=== PATIENT | male | born 1950 | race Caucasian/White ===

== ENCOUNTER 2019-08-21 16:56 | Emergency (ER) | payer MEDICARE, OTHER ==
--- OUTSIDE RECORDS SUMMARY | 2019-08-21 17:29 | XMS REPORT | Summary of Care ---
:1950 Author Organization [facility] Address [address] [facility] [place] [address] Care Team Providers Name Role Phone Ashley Caro DO Primary Care Provider Reason for Visit Reason Comments Follow Up right handed male presents with balance issues and tremor Encounter Details Date Type Department Care Team Description 06/27/2019 Office Visit [facility] Lionel Gruber MD Parkinson disease (HCC) (Primary Dx); [address] [facility] Late onset Alzheimer's disease with behavioral disturbance (HCC); [place] [id number] [place] [id number] Visual hallucination [phone] Allergies No Known Allergiesdocumented as of this encounter (statuses as of 06/27/2019) Medications Medication Sig Dispensed Refills Start Date End Date Status Aspirin (ECOTRIN LOW Take by mouth 0 Active STRENGTH) 81 MG Oral DAILY. Tab EC Multiple Take by mouth. 0 Active Vitamins-Minerals (CENTRUM SILVER ULTRA MENS PO) nitroglycerin Place 1 Tab under 25 Tab 6 07/27/2017 Active (NITROSTAT) 0.4 MG tongue EVERY FIVE Sublingual SL MINUTES NEEDED TabIndications: Chest (PRN for chest pain, unspecified type pain). q 5 min x 3, if no relief go to the ER. isosorbide MONOnitrate Take 1 Tab by 90 Tab 3 09/06/2018 Active (IMDUR) 30 MG Oral mouth DAILY. TABLET SR 24 HR Omeprazole 40 MG Oral Take 1 Cap by 90 Cap 3 12/19/2018 Active CAPSULE DELAYED RELEASE mouth DAILY. atorvastatin (LIPITOR) Take 1 Tab by 90 Tab 3 12/19/2018 Active 20 MG Oral Tab mouth DAILY. gabapentin (NEURONTIN) Take 1 Cap by 90 Cap 0 02/06/2019 Active 300 MG Oral Cap mouth THREE TIMES DAILY. carbidopa-levodopa Take 1 Tab by 180 Tab 3 05/15/2019 Active (SINEMET CR) 50-200 MG mouth TWICE Oral Tab CR DAILY. carbidopa-levodopa Take 1 Tab by 360 Tab 3 05/15/2019 Active (SINEMET) 25-100 MG mouth FOUR TIMES Oral Tab DAILY. quetiapine (SEROQUEL) Take 2 Tabs by 180 Tab 3 06/22/2019 Active 25 MG Oral Tab mouth EVERY BEDTIME. Pimavanserin Tartrate Take 34 mg by 30 Cap 3 06/27/2019 Active (NUPLAZID) 34 MG Oral mouth EVERY Cap BEDTIME. documented as of this encounter (statuses as of 06/27/2019) Active Problems Problem Noted Date Bilateral hip pain 07/11/2018 Overview: Xrays showing mild degenerative changes. Area of pain inconsistent with musculoskeletal findings. Having worsening numbness into leg as well. Will obtain MRI of lumbar spine. Parkinson disease 05/02/2018 Overview: Suspected. Has appointment with Neurology. Memory loss 05/02/2018 Overview: Currently on Aricept. Concern for underlying Parkinson's disease. Coronary artery disease involving [place] coronary artery of [place] heart 04/17 with angina pectoris Overview: S/P PCI/Stent to the LEFT ANTERIOR DESCENDING 05/09/09 Catheterization 07/25/09 Patent LEFT ANTERIOR DESCENDING stent with mild in- stent narrowing, moderate lesion 50 to 60% at the ostium. Mixed hyperlipidemia 04/17/2013 DANIEL on CPAP documented as of this encounter (statuses as of 06/27/2019) Immunizations Name Administration Dates Next Due Influenza (IM) Preservative Free 05/02/2018 Pneumococcal Conjugate(13 Valent) 05/02/2018 documented as of this encounter Social History Tobacco Use Types Packs/Day Years Used Date Former Smoker Cigarettes 1 13 07/12/1964 - 04/21/1993 Smokeless Tobacco: Former User Chew Alcohol Use Drinks/Week oz/Week Comments Yes 1 beer once a week Sex Assigned at Date Recorded Not on file Job Start Date Occupation Industry Not on file Not on file Not on file Travel History Travel Start Travel End No recent travel history available. documented as of this encounter Last Filed Vital Signs Vital Sign Reading Time Taken Comments Blood Pressure 149/95 06/27/2019 9:06 AM EST Pulse 81 06/27/2019 9:06 AM EST Temperature - - Respiratory Rate - - Oxygen Saturation - - Inhaled Oxygen Concentration - - Weight 76.2 kg (168 lb) 06/27/2019 9:06 AM EST Height 162.6 cm (5' 4") 06/27/2019 9:06 AM EST Body Mass Index 28.84 06/27/2019 9:06 AM EST documented in this encounter Patient Instructions Patient InstructionsLionel Gruber MD - 06/27/2019 9:00 AM ESTContinue with seroquel 50 g at bedtime. continue wit sinemet one pill four times a day will start with Nuplazid 34 mg at bedtime follow up in 3 months documented in this encounter Progress Notes Lionel Gruber MD - 06/27/2019 9:00 AM EST PATIENT: Tyson Dumont : 1950 DATE OF SERVICE: 06/27/2019 REFERRING PRACTITIONER: Self-Referred PRIMARY CARE PROVIDER: Ashley Caro CHIEF COMPLAINT: Chief Complaint Patient presents with Follow Up right handed male presents with balance issues and tremor HISTORY OF PRESENT ILLNESS: Tyson Dumont is a 68-y.o. right hand dominant male who presents for a consultation. He complains of unilateral hand tremor, postural changes, change in handwriting , difficulty with walking and balance problems. Tremor occurs at rest, Voice changes include decreased volume noted. Patient with no family history of AD or PD, comes in with unilateral hand tremor balance issue, memory loss since a year ago. He was evaluated by Dr. Patrick gomez who made a diagnosis of parkinson andAlzheimer's disease. He was placed on sinemet 25/100 mg one pill 4 times a day and his tremor and gait improved. however, he has a daily visual and auditory hallucinations towards evening time. he sees family members and animals and they seem to bother him and also his . Onset was gradual 1 years ago and symptoms have been gradually worsening. Symptoms are currently of mild and moderate severity. Symptoms occur intermittently and last hours. He denies drooling during sleep (wet pillows) and difficulty with swallowing. Previous treatment include Sinemet.. Patient has been taking sinemet one pill four times a day. Most of time three and occasionally four with no side effects. he also takes seroquel 50 mg at bedtime for visual hallucinations. he sees full of women at the kitchen and he hears loud noises from them they are not scary or threathening to him. he does not drive a car. He has no falls or balance issues. His dementia is under good control. He is independent with ADL. Past Medical History: Diagnosis Date Arthritis Dyslipidemia Heart disease, unspecified High cholesterol Hypertension DANIEL on CPAP Sleep apnea Unspecified essential hypertension Past Surgical History: Procedure Laterality Date POST-HEART CATH VS & CHECK PULSES ANGIOPLASTY STENT CORONARY VIA GROIN 05/09/09 APPENDECTOMY As a child BALO ANGIOP ICRA PRQ Family History Problem Relation Age of Onset Arthritis Mother Cancer Father Cancer Brother Current Outpatient Medications Medication Sig Aspirin (ECOTRIN LOW STRENGTH) 81 MG Oral Tab EC Take by mouth DAILY. atorvastatin (LIPITOR) 20 MG Oral Tab Take 1 Tab by mouth DAILY. carbidopa-levodopa (SINEMET CR) 50-200 MG Oral Tab CR Take 1 Tab by mouth TWICE DAILY. carbidopa-levodopa (SINEMET) 25-100 MG Oral Tab Take 1 Tab by mouth FOUR TIMES DAILY. gabapentin (NEURONTIN) 300 MG Oral Cap Take 1 Cap by mouth THREE TIMES DAILY. isosorbide MONOnitrate (IMDUR) 30 MG Oral TABLET SR 24 HR Take 1 Tab by mouth DAILY. Multiple Vitamins-Minerals (CENTRUM SILVER ULTRA MENS PO) Take by mouth. nitroglycerin (NITROSTAT) 0.4 MG Sublingual SL Tab Place 1 Tab under tongue EVERY FIVE MINUTES NEEDED (PRN for chest pain). q 5 min x 3, if no relief go to the ER. Omeprazole 40 MG Oral CAPSULE DELAYED RELEASE Take 1 Cap by mouth DAILY. Pimavanserin Tartrate (NUPLAZID) 34 MG Oral Cap Take 34 mg by mouth EVERY BEDTIME. quetiapine (SEROQUEL) 25 MG Oral Tab Take 2 Tabs by mouth EVERY BEDTIME. No current facility-administered medications for this visit. No Known Allergies Social History Socioeconomic History Marital status: Spouse name: Not on file Number of children: Not on file Years of education: Not on file Highest education level: Not on file Occupational History Not on file Social Needs Financial resource strain: Not on file Food insecurity Worry: Not on file Inability: Not on file Transportation needs Medical: Not on file Non-medical: Not on file Tobacco Use Smoking status: Former Smoker Packs/day: 1.00 Years: 13.00 Pack years: 13.00 Types: Cigarettes Start date: 07/12/1964 Last attempt to quit: 04/21/1993 Years since quittin.2 Smokeless tobacco: Former User Types: Chew Substance and Sexual Activity Alcohol use: Yes Comment: 1 beer once a week Drug use: No Types: Prescription Sexual activity: Not on file Comment: not asked Lifestyle Physical activity Days per week: Not on file Minutes per session: Not on file Stress: Not on file Relationships Social connections Talks on phone: Not on file Gets together: Not on file Attends mormonism service: Not on file Active member of club or organization: Not on file Attends meetings of clubs or organizations: Not on file Relationship status: Not on file Intimate partner violence Fear of current or ex partner: Not on file Emotionally abused: Not on file Physically abused: Not on file Forced sexual activity: Not on file Other Topics Concern Back Care Not Asked Bike Helmet Not Asked Blood Transfusions Not Asked Caffeine Concern Not Asked Exercise Not Asked Hobby Hazards Not Asked International Travel Not Asked Service Not Asked Occupational Exposure Not Asked Seat Belt Not Asked Self-Exams Not Asked Sleep Concern Not Asked Special Diet Not Asked Stress Concern Not Asked Weight Concern Not Asked Social History Narrative Living with and a pet dog REVIEW OF SYSTEMS: Patient is not in any acute distress. Patient denies chest pain, palpitation, dysuria, diarrhea, ,constipation, or bleedings. Patient does not have any signs of major depression or psychosis. No visualhallucination has been noted. The rest of the review of systems are unremarkable. PHYSICAL EXAMINATION: BP (!) 149/95 | Pulse 81 | Ht 5' 4" (1.626 m) | Wt 168 lb (76.2 kg) | BMI 28.84 kg/m Body mass index is 28.84 kg/m. NEUROLOGICAL: Alert and oriented X 3, normal strength and tone. Normal symmetric reflexes. Normal Coordination andgait. Mental status: Alert, oriented, thought content appropriate. No tremor is noted. hypomimia and mild bradykinesia noted. Cranial nerves: II: visual acuity normal bilaterally, ll: visual field normal, ll: pupils equal, round, reactive to light and accomodation, lll,lV,Vl : extraocular muscles extra-ocular motions intact, V: Mastication normal, V: facial light touch sensation normal bilaterally, V,Vll: corneal reflex present bilaterally, Vll: facial muscle function - upper normal bilaterally, Vll: facial muscle function - lower normal bilaterally, Vlll: hearing normal , lX: soft palate elevation normalbilaterally, lX,X: gag reflex present, Xl : trapezius strength normal bilaterally, Xl: sternocleidomastoid strength normal bilaterally, Xl: neck flexion strength normal, Xll: tongue strength normal bilaterally Sensory: normal to pain, touch, vibration and position sensation in upper and lower, bilateral extremities Motor: grade 5 frontalis bilaterally, zygomaticus bilaterally, orbicularis magdaleno bilaterally, masseter bilaterally and temporalis bilaterally, sternocleidomastiodeus bilaterally, trapezius bilaterally and rectus capitis anterior bilaterally, rectus abdominus bilaterally, supraspinatus bilaterally, trapezius bilaterally, deltoid bilaterally, pectoralis major bilaterally, rhomboid bilaterally and infraspinatus bilaterally, biceps bilaterally, brachialis bilaterally, triceps bilaterally, brachioradialis bilaterally and pronator teres bilaterally, extensor digitorum communis bilaterally and flexor carpi radialis bilaterally, adductor pollicis longus bilaterally, extensor digitorum communis bilaterally, iliacus bilaterally, psoas bilaterally, gluteus gita bilaterally, adductor trevon bilaterally, gluteus medius bilaterally and obturator internus bilaterally and gastrocnemius bilaterally, quadriceps femoris bilaterally, tibialis posterior bilaterally, peroneus longus bilaterally , peroneus brevis bilaterally and tibialis anterior bilaterally Reflexes: normal 2+ and symmetric biceps reflex (C-5 to C-6) right and left 2/4 trcieps reflex (C-7 to C-8) right and left 2/4 quadriceps reflex (L-2 to L-4) right and left 2/4 Achilles reflex (L-5 to S-2) right and left 2/4 adductor reflex (L-2 to L-4) right and left 2/4 Coordination: normal, Romberg test normal, finger to nose normal bilaterally, heel to herrera normal bilaterally, test for rapid alternating movements normal, truncal ataxia absent and cerebellar arm drift absent bilaterally Gait: normal IMPRESSION: ICD-9-CM ICD-10-CM 1. Parkinson disease (HCC) 332.0 G20 2. Late onset Alzheimer's disease with behavioral disturbance (HCC) 331.0 G30.1 294.11 F02.81 3. Visual hallucination 368.16 R44.1 Patient with no family history of AD or PD, comes in with unilateral hand tremor balance issue, memory loss since a year ago. He was evaluated by Dr. Patrick gomez who made a diagnosis of parkinson andAlzheimer's disease. He was placed on sinemet 25/100 mg one pill 4 times a day and his tremor and gait improved. however, he has a daily visual and auditory hallucinations towards evening time. he sees family members and animals and they seem to bother him and also his . Parkinson" most likley [place] stage one. And he looks good with current sinemet therapy. his main issue with hallucinations. this could be from his PD or medication. Patient has been taking sinemet one pill four times a day. Most of time three and occasionally four with no side effects. he also takes seroquel 50 mg at bedtime for visual hallucinations. he sees full of women at the kitchen and he hears loud noises from them they are not scary or threathening to him. he does not drive a car. He has no falls or balance issues. His dementia is under good control. He is independent with ADL. Impression: visual hallucination with PD: not very good controlled. will add Nuplazid. if no insurance approval, will increase seroquel. PD: stable in terms of motor manifestation. AD: no serious deterioration he is still independent with ADL. mild degree. Late onset. I spent more than 50% of time in advice and counseling This is of high complexity. PLAN: Try to add Nuplazid 34 mg at bed time this is for hallucinations Continue with seroquel 50 mg watch for sleepiness continue with sinemet 4 times a day follow up in 3 months Patient was given written instructions for parkinson's disease and also medication side efects. Patient was informed of my opinion and patient's questions were answered to the satisfaction. Follow Up: Schedule follow-up here with me in 3 month(s).. Author: Lionel Gruber MD 06/27/2019 09:21Electronically signed by Lionel Gruber MD at 9:26 AM ESTdocumented in this encounter Plan of Treatment Date Type Specialty Care Team Description 10/11/2019 Office Visit Neurology Lionel Gruber MD [address] [place] [id number] 10/18/2019 Orders Only Cardiology 10/26/2019 Office Visit Cardiology Zacarias Penaloza MD [address] [place] [address] [phone] Health Maintenance Due Date Last Done Comments MEDICARE ANNUAL WELLNESS 1950 VISIT DTaP/Tdap/Td Vaccines (1 - 1961 Tdap) Colonoscopy 2000 ZOSTER IMMUNIZATION SERIES 2000 (1 of 2) AAA SCREENING/SURVEILLANCE 2015 FALL RISK ASSESSMENT 2015 INFLUENZA VACCINE (#1) 2019 05/02/2018 DEPRESSION SCREENING 05/02/2019 05/02/2018, 05/02/2018 PNEUMOCOCCAL 65+YRS (2 of 2 05/02/2019 05/02/2018 - PPSV23) DIABETES SCREENING 05/12/2019 05/12/2018 LIPID DISORDER SCREENING 12/20/2019 12/19/2018, 05/12/2018, 12/29/2016, Additional history exists HIV SCREENING 12/23/2019 Postponed from 1965 (Patient refused) HEPATITIS C SCREENING Completed 05/12/2018 HEPATITIS A IMMUNIZATION Aged Out No longer eligible SERIES based on patient's age to complete this topic HPV IMMUNIZATION SERIES Aged Out No longer eligible based on patient's age to complete this topic MENINGOCOCCAL VACCINE IMM Aged Out No longer eligible based on patient's age to complete this topic documented as of this encounter Goals Goal Patient Goal Associated Recent Patient-Stated? Author Type Problems Progress Blood Pressure Blood Pressure 149/95 No Vaina, < 150/90 (06/27/2019 Ashley, DO 9:06 AM EST) Note: This is an individualized treatment (blood pressure) goal for Tyson Dumont: Displayed above (on the left) is your goal for blood pressure control. Your most recent blood pressure is also shown above, on the right. You should try to achieve blood pressures that are lower than your goal listed above (on the left). Depression screen Depression 11 (05/02/2018 1:03 PM No Ashley Caro DO (PHQ-9) total score < 5 EDT) Note: This is an individualized treatment (depression) goal for Tyson Dumont: Displayed above is your goal for a depression screening (PHQ-9) score that would indicate good control of your depression. Keep a regular sleep schedule Lifestyle No Ashley Caro DO Note: This is an individualized lifestyle goal for Tyson Dumont: Please maintain a regular sleep schedule. This may help with some symptoms of depression. Take all prescribed medications as Self-management No Ashley Caro DO directed Note: This is an individualized self-management goal for Tyson Dumont: Please take all prescribed medications as directed. 1. Do not skip doses. If you cannot afford your medications, talk with your doctor. 2. Use a pill reminder system such as a pill box if needed. Your pharmacist can help you with this. 3. Contact your Pharmacy 5 days before your medication runs out. If you cannot take your medications for any reasons, talk with your doctor. 4. Please bring all of your medication bottles and inhalers (or a list of all your medications/inhalers) with you to every visit. Potential barriers to meeting all of your care plan goals will continue to be addressed on an ongoing basis. documented as of this encounter Results Not on filedocumented in this encounter Visit Diagnoses Diagnosis Parkinson disease (HCC) Paralysis agitans Late onset Alzheimer's disease with behavioral disturbance (HCC) Visual hallucination Psychophysical visual disturbances documented in this encounter Insurance Payer Benefit Plan / Subscriber ID Effective Phone Address Type Group Dates MEDICARE MEDICARE PART A xxxxxxxxxxx 2015-Pres Medicare & B ent COMMERCIAL COMMERCIAL xxxxxxxxx Effective for Commercial GENERIC GENERIC PLAN all dates (Work) documented as of this encounter
[2019-08-21 17:52] LABS: ABS Lymphocytes 0.4 10^3/ul (1.0-4.8); ABS Monocytes 0.3 10^3/ul (0-0.8); ABS Neutrophils 2.9 10^3/ul (1.5-7.7); Eosinophil % 0.9 %; Hematocrit 42 % (42-52); Hemoglobin 14.8 g/dL (14.0-18.0); Lymphocyte % 10.7 %; Mean Corpuscular HGB Conc 35 g/dL (31-36); Mean Corpuscular Hemoglobin 31 pg (27-31); Mean Corpuscular Volume 90 fL (80-94); Mean Platelet Volume 7.7 fL (7.4-10.4); Nucleated Red Blood Cells % 0.1; Platelet Count 202 10^3/uL (150-450); Red Blood Count 4.72 10^6 /uL (4.18-5.48); Red Cell Distribution Width 13 % (10-15); White Blood Count 3.7 10^3/uL (3.5-10.8)
[2019-08-21 17:58] LABS: INR 1.08 (0.82-1.09)
[2019-08-21 18:10] LABS: Albumin 4.4 g/dL (3.2-5.2); Albumin/Globulin Ratio 1.6 (1-3); BUN/Creatinine Ratio 15.3 (8-20); Calcium 9.1 mg/dL (8.6-10.3); EGFR African American 91.8 (>60); EGFR Non-African American 75.8 (>60); Globulin 2.7 g/dL (2-4); Potassium 4.2 mmol/L (3.5-5.0); Total Bilirubin 0.8 mg/dL (0.2-1.0); Total Protein 7.1 g/dL (6.4-8.9)
[2019-08-21 18:11] LABS: Troponin I 0.01 ng/mL (<0.03)
[2019-08-21 18:58] VITALS: BP 125/90
== END 2019-08-21 19:17 | disposition left against medical advice (07) ==
LOC: ED 16:56
DX: R07.89 Other chest pain (principal); Z53.21 Procedure and treatment not carried out due to patient leaving prior to being seen by health care provider
CPT/HCPCS: 36415; 80053; 84484; 85025; 85610; 93005; 99282